=== PATIENT | male | born 1995 | race Caucasian/White ===

== ENCOUNTER 2018-04-30 17:17 | Inpatient (IN) | payer BC, OTHER ==
[~2018-04-30] VITALS: Ht 180.3 cm; Wt 79.4 kg
--- NOTE | 2018-04-30 17:00 | NUR ---
Pre-Admission Patient is a 22yr old male who presents to [facility] for a medically supervised withdrawal from ETOH ( Whisky) and also states he was abusing Cocaine. He is alert and oriented x4 and is accompanied by his mother. VS= BP 130/85, HR= 87, RR=16, O2=96% 3/10 pain, last BM this AM He states he last had 3 / 1oz shots of Whisky @ 2pm today and last had 0.5G Cocaine via snort @ 0200 this AM. Patient does not take any home meds nor has he brought in any medications with him. Policy regarding controlled substances and unit policies explained and patient states understanding. Will continue assessment when Patient arrives on the unit to room 322 under the care of Dr Zeus Ortiz.
--- NOTE | 2018-04-30 18:20 | NUR ---
Admission Note: Patient is a 22 yr old male who was admitted to [facility] today 04/30/18 for a medically supervised withdrawal from ETOH ( Whisky) and also states he was abusing Cocaine. He states that he has never been to detox or treatment before but feels that this is the right time to quit drinking and using drugs as he feels like his use is escalating and none of his friends drink or use like he does. Substance use: ETOH ( Whiskey) 750ml/day for past 3 months at this rate ( been drinking for past 5 years), last drink was 3 oz Whiskey @ 2pm today. Cocaine 1 G / day for past 6 months, has been using for 3 years total, last used 0.5G @ 0200 this AM via nasal insufflation His only medical history is kidney stones - 3 which passed naturally 1 year ago and still has 2 remaining stones. he has no seizure history, SI, A/V hallucinations or 5150 holds, he reports having blackouts from drinking but not often.His withdrawal symptoms when he stops drinking present as diaphoresis, tremors, headaches and thirst, at the moment he is in withdrawal and is experiencing sweats and mild headache and bilateral hand tremors. His CIWA is 12. He has no PCP but has a Therapist= Dr Ramonita Savage When asked why he is here today he states " I don't know why I drink to the extent I do, none of my friends do, I was drinking normal like them until I was [age] and then my drinking escalated". He has never really tried to get sober before but states a period of 1 month last year where he had days of abstinence and was drinking less than normal other days but then it went back to drinking to excess, so much that he lost a very good paying job. He lives at home with his parents who are his support system , his sister is in treatment currently for Alcohol and Heroin and other substances. He states he is motivated and wants to continue to treatment and try to figure out why he has this problem of drinking and not being able to stop. Lungs clear, No SOB, last BM 04/30/18, BS present, skin intact, Weight 175lbs on standing scale and Height is 5'11"
--- NOTE | 2018-04-30 19:15 | NUR ---
Start of Shift Note: Received patient awake in bed. Patient is a 22 y.o male admitted today 04/30/18 for medically supervised withdrawal from ETOH. Pt also reported using Cocaine. Patient is alert & oriented x4. Patient presented with a flushed face, sweating, anxiety, agitation, fine tremors, 7/10 headache and also complains of 5/10 flank pain. Pt denies hallucinations. No N/V/D noted. Pt has no taper yet. PRN medications available to manage symptoms of withdrawal. Pt encourage to increase fluid intake. Explained to patient current plan of care of the night and medication regimen. Both side rails up. Bed in the lowest position. Call light within pts reach. Will continue to monitor patient.
--- NOTE | 2018-04-30 19:54 | NUR ---
End Of Shift Patient is a 22 yr old male who was admitted to [facility] today 04/30/18 for a medically supervised withdrawal from ETOH ( Whisky), Dr Ortiz is en route to assess and evaluate patient so no taper has been placed as of yet. He is lying in bed resting, watching TV and voices no complaints. Urine drug screen sent to lab. Endorsement given to shift lab technician nurse.
[2018-04-30 20:00] VITALS: BP 124/85
[2018-04-30] MEDS ORDERED: LORAZEPAM 1 MG TABLET PO PRN ×2 (21:45)
[2018-04-30] MEDS ORDERED: LOPERAMIDE HCL 2 MG CAPSULE PO PRN ×2 (21:45)
[2018-04-30] MEDS ORDERED: HYDROXYZINE PAMOATE 25 MG CAPSULE PO PRN (21:45)
[2018-04-30] MEDS ORDERED: MAG HYDROX/AL HYDROX/SIMETH 30 ML LIQUID UDC PO PRN (21:45)
[2018-04-30] MEDS ORDERED: ONDANSETRON ODT 4 MG TAB.RAPDIS SL PRN (21:45)
[2018-04-30] MEDS ORDERED: LORAZEPAM 2 MG/1 ML VIAL IM PRN (21:45)
[2018-04-30] MEDS ORDERED: diphenhydrAMINE 50 MG CAPSULE PO PRN (21:45)
[2018-04-30] MEDS ORDERED: CLONIDINE HCL 0.1 MG TABLET PO PRN (21:45)
[2018-04-30] MEDS ORDERED: MAGNESIUM HYDROXIDE 30 ML LIQUID UDC PO PRN (21:45)
[2018-04-30] MEDS ORDERED: THIAMINE HCL 200 MG/2 ML VIAL IM ONE (22:00)
[2018-04-30] MEDS: IBUPROFEN 600 MG TABLET PO PRN (22:10)
--- NOTE | 2018-04-30 22:10 | NUR ---
PRN Ativan & Motrin Patient compalined of sweating, fine tremors, anixtey, agitation and 7/10 headache. CIWA 16 noted at this time. PRN Ativan 2mg and Motrin 600mg given as ordered. will monitor for effectiveness of medication.
[2018-04-30 22:42] LABS: BASOPHILS # (AUTO) 0.1 K/uL (0.0-8.0); EOSINOPHILS # (AUTO) 0.2 K/uL (0.0-0.7); EOSINOPHILS % (AUTO) 3.3 % (0.0-7.0); HEMATOCRIT 43.4 % (36.7-47.1); HEMOGLOBIN 15.3 g/dL (12.5-16.3); LYMPHOCYTES # (AUTO) 2.3 K/uL (20.0-40.0); MEAN CORPUSCULAR HEMOGLOBIN 32.5 uug (23.8-33.4); MEAN CORPUSCULAR HGB CONC 35 g/dL (32.5-36.3); MEAN CORPUSCULAR VOLUME 91.9 fL (73.0-96.2); MONOCYTES # (AUTO) 0.7 K/uL (2.0-10.0); MONOCYTES % (AUTO) 10.2 % (0.0-11.0); NEUTROPHILS # (AUTO) 3.4 K/uL (1.8-8.9); NEUTROPHILS % (AUTO) 50.5 % (38.5-71.5); PLATELET COUNT (AUTO) 304 K/uL (152-348); RED BLOOD CELL COUNT(AUTO) 4.72 MIL/uL (4.06-5.63); WHITE BLOOD COUNT (AUTO) 6.7 K/uL (3.6-10.2)
[2018-04-30 22:55] LABS: ALANINE AMINOTRANSFERASE 107 U/L (16-63); ALKALINE PHOSPHATASE 98 U/L (50-136); AMYLASE 43 U/L (25-115); ASPARTATE AMINOTRANSFERASE 66 U/L (15-37); BILIRUBIN,TOTAL 0.7 mg/dL (0.2-1.0); CARBON DIOXIDE 30 mmol/L (21-32); CHLORIDE 104 mmol/L (98-107); CREATININE 1.1 mg/dL (0.6-1.3); GLUCOSE 82 mg/dL (74-106); LIPASE 114 U/L (73-393); MAGNESIUM 2.2 mg/dL (1.8-2.4); POTASSIUM 3.9 mmol/L (3.5-5.1); TOTAL PROTEIN, SERUM 7.5 g/dL (6.4-8.2); UREA NITROGEN, BLOOD 11 mg/dL (7-18)
--- NOTE | 2018-04-30 23:00 | NUR ---
PRN Reassessment Patient verbalized decrease in headache from 02/13 to 10/14. Pt still noted with sweating and fine tremors. Decreased in anxiety noted. CIWA 11 noted at this time. Will continue to monitor patient.
[2018-04-30 23:03] LABS: *AMPHETAMINE, URINE NEGATIVE (NEGATIVE); *BARBITURATE, URINE NEGATIVE (NEGATIVE); *CANNABINOID, URINE NEGATIVE (NEGATIVE); *COCCAINE, URINE POSITIVE (NEGATIVE); *OPIATE, URINE NEGATIVE (NEGATIVE); *PHENCYCLIDINE SCREEN,URINE NEGATIVE (NEGATIVE)
[2018-04-30 23:17] LABS: ETHANOL < 3 MG/DL (0-0)
[2018-04-30 23:46] LABS: THYROID STIMULATING HORMONE 1.301 mIU/mL (0.358-3.740)
[2018-05-01] VITALS: BP 104/64
[2018-05-01 04:00] VITALS: BP 105/61
--- NOTE | 2018-05-01 04:00 | NUR ---
Ciwa Assessment Patient still asleep at this time and appears comfortable. No apparent distress noted at this time. Vitals noted WNL. Unable to assess Ciwa at this time, will reassess ciwa when pt is awake.
--- NOTE | 2018-05-01 07:16 | NUR ---
End of Shift Note: Pt is a 22 y.o male admitted yesterday 04/30/18 for medically supervised withdrawal from ETOH. Pt also reported using cocaine. Pt is alert & oriented x4. He presented with a flushed face, sweating, anxiety, agitation, fine tremors and 7/10 headache. Initial CIWA 16. Last CIWA 11. Pt will start on a 5-day Ativan taper today. He received PRN Ativan 2mg and Motrin last night and were effective. Pt remained stable and vitals noted WNL. Pt slept well last night. Pt slept for a total of 6 hours. Fluid intake: 1855 ml. Voided 1x with no BM noted. Safety measures in place. Will endorse pt to day shift nurse.
--- NOTE | 2018-05-01 08:00 | NUR ---
Start Of Shift / CIWA 12 Pt is a 22 y/o M admitted on 04/30/18 for medically supervised ETOH withdrawal and reported cocaine use. Pt is placed on a 5 day ativan taper that will start this am. Pt has a flat affect, is guarded, has an anxious mood, presents facial flushing, gross tremors noted, sweating, anxiety, agitation, restlessness, headache 5/10 pain and body aches 3/10. Encouraged pt to increase fluids as tolerated to facilitate in detox and to verbalize feelings about situation. Last CIWA 11 @0000, slept 6 hrs, ativan 2mg prn for CIWA 16 lowered to 11. Educated pt on s/s to report, med regimen and plan of care. Side rails upx2, bed in low position, call light within reach. Will continue to monitor.
[2018-05-01] MEDS: MULTIVITAMINS,THERAPEUTIC TABLET PO SCH (08:54)
[2018-05-01] MEDS: THIAMINE HCL 100 MG TABLET PO SCH (08:54)
[2018-05-01] MEDS: LORAZEPAM 1 MG TABLET PO SCH ×4 (08:54→21:46)
[2018-05-01] MEDS: FOLIC ACID 1 MG TABLET PO SCH (08:54)
[2018-05-01 09:00] VITALS: BP 135/75
[2018-05-01] MEDS ORDERED: 5 DAY TAPER OF LORAZEPAM -SERENITY PROTOCOL PO PRN (09:00)
[2018-05-01] MEDS ORDERED: TUBERCULIN,PURIF.PROT.DERIV. 5 TU/0.1 ML TEST ID ONE (09:00)
[2018-05-01] MEDS: IBUPROFEN 600 MG TABLET PO PRN ×2 (09:24→21:46)
--- NOTE | 2018-05-01 09:24 | NUR ---
PRN Ibuprofen 600 mg po prn given for headache 5/10, body aches 3/10 pain. Will monitor and reassess.
--- NOTE | 2018-05-01 09:24 | NUR ---
Reassessment Pt is laying in bed with eyes closed, lights off, appears to be sleeping. Respirations even and unlabored. Will continue to monitor closely.
--- NOTE | 2018-05-01 10:27 | NUR ---
Therapist prompted client to attend group therapy.
--- NOTE | 2018-05-01 12:08 | NUR ---
CIWA 16 Pt has been in room sleeping. Pt presents, sweating, gross/fine tremors, chills, headache, generalized body aches 5/10, anxiety, agitation, appears flushed, restlessness, appears withdrawn and has an anxious mood. Scheduled ativan po to be given. Refuses other prns at this time. Will continue to monitor.
[2018-05-01 12:15] VITALS: BP 114/60
[2018-05-01 16:00] VITALS: BP_SYST 112; BP_SYST 116; BP_DIAS 68
--- NOTE | 2018-05-01 19:55 | NUR ---
End Of Shift Pt has been in room sleeping mostly throughout shift. Pt c/o headache, flank pain and was given ibuprofen prn. Presents heavy sweating and tremors. Last CIWA 17. Safety measure in place. Endorsement given.
[2018-05-01 20:00] VITALS: BP 114/79
--- NOTE | 2018-05-01 20:00 | NUR ---
Start of Shift Notes Received 22 y/o male evans, admitted for medically supervised withdrawal from ETOH. Px is also using cocaine. Px was placed on 5 day Ativan taper, started today, 05/01/2018. He is tolerating it. Last reported CIWA 16 by AM shift nurse. During the rounds at 1999, evans is awake inside his room, standing. Px appears anxious and depressed. Few drinks noted on top of the bed side table. He states that his anxiety is 8/10 and complains of H/A 3/10 and sweats. He said that the food service hotel runner is awful because they gave him cold dinner tonight. Bed on lowest position, side rails up 2x, and call light within reach. Well continue to monitor.
--- NOTE | 2018-05-01 20:00 | NUR ---
CIWA 15 Upon assessment, Px appears anxious and depressed. He states that his anxiety is 8/10 and complains of H/A 3/10 and sweats. Mild bilateral hand tremors noted. will continue to monitor
--- NOTE | 2018-05-01 21:46 | NUR ---
PRN Motrin Px received Motrin 600 mg PO for H/A of 10/14. to reassess after an hour
--- NOTE | 2018-05-01 22:50 | NUR ---
PRJarrod Mejia reassessment Px stated that his H/A is gone.
[2018-05-02] VITALS: BP 106/77
--- NOTE | 2018-05-02 | NUR ---
CIWA deferred CIWA deferred due to the px is asleep, to assess if the px is awake per doctor's order. will continue to monitor
[2018-05-02 04:00] VITALS: BP 100/71
--- NOTE | 2018-05-02 04:00 | NUR ---
CIWA deferred CIWA deferred due to the px is asleep, to assess if the px is awake per doctor's order. will continue to monitor
[2018-05-02 06:06] LABS: HEPATITIS B SURFACE AG Negative (Negative)
--- NOTE | 2018-05-02 07:10 | NUR ---
End of Shift Notes During the shift at 2146, px received Motrin 600 mg PO for H/A of 10/14. It was effective. Oral intake of 1000 ml, voided 3x NO BM. He slept for 8 hours. Bed on lowest position, side rails up 2x, and call light within reach. Well continue to monitor. Px endorsed to AM shift nurse.
[2018-05-02 07:33] LABS: BILIRUBIN,DIRECT 0.2 mg/dL (0.0-0.2); BILIRUBIN,TOTAL 0.7 mg/dL (0.2-1.0); TOTAL PROTEIN, SERUM 6.3 g/dL (6.4-8.2)
--- NOTE | 2018-05-02 07:56 | NUR ---
Start Of Shift / 15 Pt is a 22 y/o M admitted on 04/30/18 for medically supervised ETOH withdrawal and reported cocaine use. Today is the second day of a 5 day ativan taper and tolerating well. Pt has a flat affect, is withdrawn, has an anxious mood, presents anxiety, facial flushing, gross/fine tremors noted, sweating, agitation, restlessness, headache and body aches 5/10. Encouraged pt to increase fluids as tolerated to facilitate in detox and to verbalize feelings about situation. Educated pt on med regimen and tx plan. Last @1999, slept 8 hrs, ibuprofen prn was given. Educated pt on s/s to report, med regimen and plan of care. Side rails upx2, bed in low position, call light within reach. Will continue to monitor. Addendum: 05/02/18 at 0810 by GINA JOHNSON RN Correct CIWA is 16
[2018-05-02 08:08] VITALS: BP 108/72
[2018-05-02] MEDS: MULTIVITAMINS,THERAPEUTIC TABLET PO SCH (09:45)
[2018-05-02] MEDS: FOLIC ACID 1 MG TABLET PO SCH (09:45)
[2018-05-02] MEDS: IBUPROFEN 600 MG TABLET PO PRN (09:45)
[2018-05-02] MEDS: THIAMINE HCL 100 MG TABLET PO SCH (09:45)
[2018-05-02] MEDS: LORAZEPAM 1 MG TABLET PO SCH ×3 (09:45→20:35)
--- NOTE | 2018-05-02 09:45 | NUR ---
PRN Ibuprofen 600 mg po prn given for headache 5/10 pain. Will monitor and reassess.
--- NOTE | 2018-05-02 10:45 | NUR ---
Reassessment Pt is laying in bed with eyes closed, appears to be sleeping. Respirations even and unlabored. Safety measures in place.
[2018-05-02 12:00] VITALS: BP 115/72
--- NOTE | 2018-05-02 12:30 | NUR ---
[facility] 17 Pt has been in room sleeping since morning. Pt's sweating is obvious, gross/fine tremors, chills, headache 5/10, generalized body aches, anxiety, agitation, appears flushed, restlessness, appears withdrawn and has an anxious mood. Refuses prns. Encouraged pt to verbalize feelings about situation. Will continue to monitor.
[2018-05-02 16:00] VITALS: BP 122/75
--- NOTE | 2018-05-02 16:19 | NUR ---
[facility] 5 Pt has been mostly in room, only coming out to go to the patio x2. Pt's sweating is obvious, gross/fine tremors, chills, generalized body aches, anxiety, agitation, appears flushed, restlessness, is withdrawn and has a depressive mood. Pt verbalizes that his withdrawal s/s has decreased somewhat. Refuses prns. Encouraged pt to verbalize feelings about situation. Will continue to monitor. Addendum: 05/02/18 at 1621 by GINA JOHNSON RN [facility] 15
--- NOTE | 2018-05-02 19:35 | NUR ---
End Of Shift Pt has been isolative in room throughout shift, mostly sleeping. Pt verbalized toward end of shift he is feeling much better than before and had gotten up to go to the patio. Pt ate 75/75/50% of meals. Fluid intake 1000 ml, voided x3, bm 0. Encouraged pt to increased fluids and food intake. Safety measures in place.
--- NOTE | 2018-05-02 19:37 | NUR ---
Start of shift note Received report from day shift nurse. Pt is a 22 yo male, A+Ox4, presenting to [facility] for medically supervised ETOH withdrawal. Pt was also using Cocaine. Pt noted to be restless, anxious, and agitated. Pt has HX of kidney stones which will be monitored during shift. Pt is on 5 day Ativan taper, tolerated well. Respirations even and unlabored. Will continue to monitor.
[2018-05-02 20:12] VITALS: BP 129/85
--- NOTE | 2018-05-02 20:12 | NUR ---
CIWA Assessment CIWA: 11. Pt noted with fine tremors, anxiety, and agitation. Respirations even and unlabored. Will continue to monitor.
--- NOTE | 2018-05-03 00:51 | NUR ---
V/S refused and CIWA Assessment deferred for sleep. Respirations even and unlabored. Will continue to monitor.
--- NOTE | 2018-05-03 04:34 | NUR ---
V/S refused and CIWA Assessment deferred for sleep. Respirations even and unlabored. Will continue to monitor.
--- NOTE | 2018-05-03 07:00 | NUR ---
End of shift note Pt was continuously noted with anxiety, agitation, and fatigue. Pt remained in room for majority of shift except to go smoke on smoking patio, and to get food from kitchen. Pt remained cooperative and compliant with all aspects of treatment. Pt was not given any PRN medications during shift. Pt is on 5 day Ativan taper, tolerated well. Pt slept for a total of 9 HRS. Last CIWA: 11 @2011. Respirations even and unlabored. Will endorse to day shift nurse.
--- NOTE | 2018-05-03 07:30 | NUR ---
START OF SHIFT Pt 22 y/o male admitted for etoh withdrawal. Pt received in room on bed with eyes closed resting,but easily arousable to name. Pt alert and oriented to name, place, and time. Perrla. Skin warm and moist to touch. Respirations even and unlabored. Appears disheveled. Empty food wrappings scattered throughout the room. Encouraged to maintain hygiene. Anxious and restless. Not able to lay still on bed. Bilateral hand tremors noted. Complaints of intermittent perspiration. It was reported that pt slept for 9 hours last night. Last ciwa=11 @ 1999. Pt is on a 5 day ativan taper and is on day 3. Bed on lowest position with side rails x 2 up for safety. Call light within reach.
[2018-05-03 08:00] VITALS: BP 91/60
--- NOTE | 2018-05-03 08:00 | NUR ---
CIWA ASSESSMENT ciwa=11. Anxious and restless. Pressured speech noted. Fidgety. Bilateral hand tremors. Complaints of intermittent perspiration.
[2018-05-03] MEDS: THIAMINE HCL 100 MG TABLET PO SCH (08:36)
[2018-05-03] MEDS: FOLIC ACID 1 MG TABLET PO SCH (08:36)
[2018-05-03] MEDS: MULTIVITAMINS,THERAPEUTIC TABLET PO SCH (08:36)
[2018-05-03] MEDS: LORAZEPAM 1 MG TABLET PO SCH ×4 (08:36→21:41)
[2018-05-03 12:00] VITALS: BP 117/69
--- NOTE | 2018-05-03 12:00 | NUR ---
CIWA ASSESSMENT ciwa=11. Bilateral hand tremors. Anxious and restless. Pressured speech noted. Not able to sit still. Intermittent perspiration.
--- NOTE | 2018-05-03 13:46 | NUR ---
Therapist prompted client to attend group therapy.
[2018-05-03 16:00] VITALS: BP 124/77
--- NOTE | 2018-05-03 16:00 | NUR ---
CIWA ASSESSMENT ciwa=11. Anxious and restless. Pressured speech noted. Not able to sit still. Intermittent perspiration. Irritable. Bilateral hand tremors.
--- NOTE | 2018-05-03 18:30 | NUR ---
END OF SHIFT Pt 22 y/o male admitted for etoh withdrawal. Pt alert and oriented to name, place, and time. Perrla. Respirations even and unlabored. Appears disheveled and unkempt. Clothes and empty drink bottles scattered throughout the room. Encouraged to maintain hygiene. Bilateral hand tremors noted. Anxious and restless. Pressured speech. Irritable. Intermittent perspiration noted. Observed mostly in recreational room today. Pt attended group activity. Pt medication compliant. Last ciwa=12 @ 1600. Pt is on a 5 day ativan and is on day 3. Bed on lowest position with side rails x2 up for safety.
--- NOTE | 2018-05-03 19:16 | NUR ---
Start of shift note Received report from day shift nurse. Pt is a 22 yo male, A+ox4, presenting to [facility] for medically supervised ETOH withdrawal. Pt was also using Cocaine. Pt noted with fatigue, depressed demeanor, anxiety, and agitation. Pt has HX of kidney stones which will be monitored during shift. Pt is on 5 day Ativan taper, tolerated well. Respirations even and unlabored. Will continue to monitor.
[2018-05-03 20:14] VITALS: BP 130/85
--- NOTE | 2018-05-04 07:00 | NUR ---
End of shift note Pt was continuously noted with depressed demeanor, agitation, and anxiety. Pt remained in room for majority of shift except to get food from the kitchen, and to go smoke on smoking patio. Pt remained cooperative and compliant with all aspects of treatment. Pt was not given any PRN medications during shift. Pt remains on 5 day Ativan taper, tolerated well. Pt slept for a total of 6 HRS. Last CIWA: 8 @2013. Respirations even and unlabored. Will endorse to day shift nurse.
--- NOTE | 2018-05-04 07:30 | NUR ---
START OF SHIFT Pt 22 y/o male admitted etoh withdrawal. Pt received in room on bed with eyes closed resting, but easily arousable to name. Pt alert and oriented to name, place, and time. Perrla. Skin warm and moist to touch. Respirations even and unlabored. Appears disheveled and unkempt. Hair uncombed. Clothes scattered throughout the room. Encouraged to maintain hygiene. Anxious and restless. Not able to lay still. Pressured speech. Bilateral hand tremors noted. It was reported that pt slept for 6 hours last night. Last ciwa=8 @1999. Pt is on a 5 day ativan taper and is on day 4. Bed on lowest position with side rails x2 up for safety. Call light within reach.
[2018-05-04 08:00] VITALS: BP 96/60
--- NOTE | 2018-05-04 08:00 | NUR ---
CIWA ASSESSMENT ciwa=10. Bilateral hand tremors noted. Anxious and restless. Pressured speech noted. Irritable. Complaints of intermittent perspiration.
[2018-05-04] MEDS: FOLIC ACID 1 MG TABLET PO SCH (08:21)
[2018-05-04] MEDS: THIAMINE HCL 100 MG TABLET PO SCH (08:21)
[2018-05-04] MEDS: LORAZEPAM 1 MG TABLET PO SCH ×2 (08:21→14:13)
[2018-05-04] MEDS: MULTIVITAMINS,THERAPEUTIC TABLET PO SCH (08:21)
[2018-05-04 12:00] VITALS: BP 91/48
--- NOTE | 2018-05-04 12:00 | NUR ---
CIWA ASSESSMENT ciwa=10. Anxious and restless. Pressured speech. Bilateral hand tremors noted. Irritable. Complaints of generalized discomfort.
--- NOTE | 2018-05-04 15:21 | NUR ---
Therapist prompted client to attend group therapy.
--- NOTE | 2018-05-04 16:18 | NUR ---
PRN CATAPRES VISTARIL Pt anxious and restless. Pacing. Very irritable. Vistaril po prn per MD order. Catapres po prn per MD order given and tolerated well.
--- NOTE | 2018-05-04 16:40 | NUR ---
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 pt is very labile, tearful and fall of rage at the same time. explained to patient because you verbalized that we have a protocol, placed a call to [facility] to evaluate pt for suicidal ideations. Shauna assessed pt and PT did not meet criteria. pt was calm and apologized after for his actions after, Patient verbalized i still want to leave AMA.
[2018-05-04 16:50] VITALS: BP 128/68
--- NOTE | 2018-05-04 16:50 | NUR ---
CIWA ASSESSMENT ciwa=10. Bilateral hand tremors noted. Anxious and restless. Irritable. Pressured speech noted. Complaints of generalized discomfort. Complaints of intermittent perspiration.
--- NOTE | 2018-05-04 18:53 | NUR ---
END OF SHIFT Pt 22 y/o male admitted for etoh withdrawal. Pt alert and oriented to name, place, and time. Perrla. Respirations even and unlabored. Appears disheveled and unkempt. Clothes and food wrappings scattered throughout the room. Encouraged to maintain hygiene. Bilateral hand tremors noted. Anxious and restless. Pressured speech. Easily irritable. Not able to sit still. Observed mostly in recreational room today. Attended group activity today. Pt medication compliant. Last ciwa=10 @ 1600. Pt is on a 5 day ativan and is on day 4. Bed on lowest position with side rails x2 up for safety.
--- NOTE | 2018-05-04 19:25 | NUR ---
AMA Note Patient stated taht he wanted to leave AMA because he is "over detox". Pt educated about the risks and consequences of leaving AMA. Pt verbal;ized understanding but still requested to leave. Multiple staff members spoke with patient without any success. V/S WNL. Pt denies any suicidal/homicidal ideations. Skin is intact. Dr. Ortiz notified. Pt was given a list of community resources in case he is in need of help. All belongings returned to patient. Pt left the facility on 05-04-18 @2207.
[2018-05-05] MEDS ORDERED: LORAZEPAM 1 MG TABLET PO SCH (09:00)
== END 2018-05-04 19:25 | disposition left against medical advice (07) | DRG 894 ==
LOC: SRC 17:17
PROVIDERS: ADMIT Family Medicine Addiction Medicine; ATTEND Family Medicine Addiction Medicine
PROC: HZ2ZZZZ Detoxification Services for Substance Abuse Treatment (ICD-10-PCS; principal; 2018-04-30)
PROC: HZ31ZZZ Individual Counseling for Substance Abuse Treatment, Behavioral (ICD-10-PCS; 2018-05-01)
DX: F10.230 Alcohol dependence with withdrawal, uncomplicated (principal); F14.10 Cocaine abuse, uncomplicated; Y90.9 Presence of alcohol in blood, level not specified; Z87.442 Personal history of urinary calculi; R74.0 Nonspecific elevation of levels of transaminase and lactic acid dehydrogenase [LDH]
CPT/HCPCS: 36415; 80307; 80353; 83690; 83735; 84443; 85025; 86592; 86705; 86803; 87340; 87806; A4663; G0480; J3411